=== PATIENT | male | born 1945 | race Caucasian/White ===

== ENCOUNTER 2017-01-20 13:12 | Inpatient (IN) | payer MEDICARE, BC ==
[~2017-01-20] VITALS: Ht 208.3 cm; Wt 96.7 kg
[~2017-01-20 13:12] MED LIST: ASPIRIN81 M1 PO; NORCO 5-325 TA1 EACH PO; SYNTHROID150 MC1 PO; VITAMIN D1000 UNI3 PO
[2017-01-20 13:53] LABS: BASO % 0.5 % (0-2); BASO ABSOLUTE COUNT 0.1 tho/cmm (0.0-0.2); EOS % 1.4 % (0-7); EOSINOPHIL ABSOLUTE COUNT 0.2 tho/cmm (0.0-0.7); HCT-HEMATOCRIT 45.3 % (36.0-53.5); HGB-HEMOGLOBIN 15.9 gm/dl (13.5-17.0); IMMATURE GRANULOCYTES ABSOLUTE 0.04 tho/cmm (0-0.03); IMMATURE GRANULOCYTES PERCENT 0.3 % (0-0.3); LYMPH % 17.3 % (20-45); LYMPH ABSOLUTE COUNT 2.3 tho/cmm (0.8-4.5); MCHC MEAN CORPUSCULAR HGB CONC 35.1 % (32.0-36.0); MCV (MEAN CELL VOLUME) 88.3 fl (82.0-96.0); MEAN PLATELET VOLUME 8.8 cmc (9.4-12.4); MONO % 5.7 % (0-12); MONOCYTE ABSOLUTE COUNT 0.7 tho/cmm (0.0-1.2); NEUTROPHIL ABSOLUTE COUNT 9.8 tho/cmm (1.6-8.0); NEUTROPHIL-AUTOMATED 9.8 tho/cmm (1.6-8.0); NEUTROPHILS % 74.8 % (40-80); PLATELET COUNT 277 tho/cmm (150-450); RED BLOOD COUNT 5.13 mil/cmm (4.40-5.70); RED CELL DISTRIBUTION WIDTH 12.6 % (12.4-16.4)
[2017-01-20 14:12] LABS: ALBUMIN 3.8 g/dl (3.5-5.0); ALKALINE PHOSPHATASE 84 U/L (33-138); ALT/SGPT 35 U/L (12-78); ANION GAP 12 mmol/L (0-20); AST/SGOT 26 U/L (10-40); BILIRUBIN,DIRECT 0.1 mg/dl (0.0-0.3); BILIRUBIN,INDIRECT 0.5 mg/dL (0.0-1.0); BILIRUBIN,TOTAL 0.6 mg/dl (0.0-1.5); BLOOD UREA NITROGEN 16 mg/dl (6-24); CALCIUM 9.1 mg/dl (8.5-10.5); CARBON DIOXIDE-VENOUS 24 mmol/L (22-32); CHLORIDE 106 mmol/l (96-110); CREATININE 0.87 mg/dl (0.60-1.30); GLUCOSE 172 mg/dL (70-110); POTASSIUM 3.6 mmol/L (3.7-5.1); SODIUM 138 mmol/L (135-145); eGFR VALUE FOR BLACK >90 mL/Min
[2017-01-20 14:25] LABS: LIPASE >30000 U/L (73-393)
[2017-01-20 17:22] LABS: URINE APPEARANCE CLEAR; URINE BILIRUBIN NEGATIVE (NEG); URINE BLOOD NEGATIVE (NEG); URINE COLOR YELLOW; URINE GLUCOSE (UA) NEGATIVE (NEG); URINE KETONE NEGATIVE (NEG); URINE LEUKOCYTE ESTERASE NEGATIVE (NEG); URINE NITRITE NEGATIVE (NEG); URINE PROTEIN SMALL (NEG)
[2017-01-20 17:27] LABS: URINE EPITHELIAL CELLS 0 /[HPF] (0-10); URINE RBC 0 /[HPF] (0-5); URINE WBC 0 /[HPF] (0-5)
[2017-01-20 17:57] LABS: MAGNESIUM 2.1 mg/dl (1.8-2.6); PHOSPHOROUS 2.5 mg/dl (2.5-4.9)
[2017-01-20 18:00] LABS: TSH-THYROID STIMULATING HORM. 1.16 uIU/ml (0.40-3.80)
[2017-01-20] MEDS ORDERED: VITAMIN D PO (21:14)
[2017-01-21] MEDS ORDERED: PRILOSEC PO (00:33)
[2017-01-21 06:05] LABS: BASO % 0.1 % (0-2); HCT-HEMATOCRIT 41.7 % (36.0-53.5); HGB-HEMOGLOBIN 14.1 gm/dl (13.5-17.0); IMMATURE GRANULOCYTES ABSOLUTE 0.02 tho/cmm (0-0.03); IMMATURE GRANULOCYTES PERCENT 0.2 % (0-0.3); LYMPH % 4.6 % (20-45); LYMPH ABSOLUTE COUNT 0.5 tho/cmm (0.8-4.5); MCH (MEAN CORPUSCULAR HGB) 30.7 pg (28.0-32.0); MCHC MEAN CORPUSCULAR HGB CONC 33.8 % (32.0-36.0); MCV (MEAN CELL VOLUME) 90.7 fl (82.0-96.0); MEAN PLATELET VOLUME 8.8 cmc (9.4-12.4); MONO % 4.4 % (0-12); MONOCYTE ABSOLUTE COUNT 0.5 tho/cmm (0.0-1.2); NEUTROPHIL ABSOLUTE COUNT 10.6 tho/cmm (1.6-8.0); NEUTROPHIL-AUTOMATED 10.6 tho/cmm (1.6-8.0); NEUTROPHILS % 90.7 % (40-80); PLATELET COUNT 205 tho/cmm (150-450); RED CELL DISTRIBUTION WIDTH 13.1 % (12.4-16.4); WHITE BLOOD COUNT 11.6 tho/cmm (4.0-10.0)
[2017-01-21 06:19] LABS: INR 1.2 INR (0.9-1.1); PROTHROMBIN TIME 13.8 SECONDS (9.0-13.6)
[2017-01-21 06:21] LABS: ANION GAP 6 mmol/L (0-20); BLOOD UREA NITROGEN 19 mg/dl (6-24); C-REACTIVE PROTEIN 1.6 mg/dl (0-0.9); CALCIUM 8.2 mg/dl (8.5-10.5); CARBON DIOXIDE-VENOUS 29 mmol/L (22-32); CHLORIDE 110 mmol/l (96-110); CREATININE 0.79 mg/dl (0.60-1.30); GLUCOSE 156 mg/dL (70-110); POTASSIUM 4.4 mmol/L (3.7-5.1); SODIUM 141 mmol/L (135-145); eGFR VALUE FOR BLACK >90 mL/Min
[2017-01-21 06:28] LABS: LIPASE 3998 U/L (73-393)
[2017-01-21 06:30] LABS: AMYLASE 411 U/L (20-90)
--- NOTE | 2017-01-21 16:15 | NUR ---
VN NOTE-CALLED DR CHANDRA SCMIDTS OFFICE AND GOT VACCINE INFORMATION
--- NOTE | 2017-01-21 17:39 | NUR ---
VN ROUNDING-PATIENT LAYING IN BED SAYING HE HAS FREQUENT PAIN-ENC HIM TO USE THE CONCRETE MASON NEEDED. I ASKED HOW HE WAS DOING AMBULATING IN THE HALLS AND HE SAID THEY WILL TRY TO DO THAT TOMORROW-SO I ASKED WHAT WAS THE REASON FOR NOT WALKING IN THE HALLS TODAY AND HE SAID DUE TO HIS PROCEDURE AND NOT FEELING LIKE IT. EDUCATED HIM ON THE IMPORTANCE OF WALKING-HE AGREED AND VERBALIZED UNDERSTANDING. HE KNOWS THAT HE MAY HAVE TO HAVE A LAP APRIL AND HE MENTIONED THE DOCS HAD SAID MAYBE SATURDAY. NO FURTHER QUESTIONS OR CONCERNS AT THIS TIME
[2017-01-22 05:07] LABS: BASO % 0.1 % (0-2); HCT-HEMATOCRIT 38.5 % (36.0-53.5); HGB-HEMOGLOBIN 13.1 gm/dl (13.5-17.0); IMMATURE GRANULOCYTES ABSOLUTE 0.06 tho/cmm (0-0.03); IMMATURE GRANULOCYTES PERCENT 0.4 % (0-0.3); LYMPH % 4.3 % (20-45); LYMPH ABSOLUTE COUNT 0.7 tho/cmm (0.8-4.5); MCV (MEAN CELL VOLUME) 91.2 fl (82.0-96.0); MEAN PLATELET VOLUME 8.9 cmc (9.4-12.4); MONO % 6.4 % (0-12); NEUTROPHIL ABSOLUTE COUNT 14.4 tho/cmm (1.6-8.0); NEUTROPHIL-AUTOMATED 14.4 tho/cmm (1.6-8.0); NEUTROPHILS % 88.8 % (40-80); PLATELET COUNT 166 tho/cmm (150-450); RED BLOOD COUNT 4.22 mil/cmm (4.40-5.70); RED CELL DISTRIBUTION WIDTH 13.2 % (12.4-16.4); WHITE BLOOD COUNT 16.2 tho/cmm (4.0-10.0)
[2017-01-22 05:20] LABS: ALB/GLOB RATIO 0.9 (0.8-2.0); ALBUMIN 2.8 g/dl (3.5-5.0); ALKALINE PHOSPHATASE 55 U/L (33-138); ALT/SGPT 23 U/L (12-78); ANION GAP 9 mmol/L (0-20); AST/SGOT 22 U/L (10-40); BLOOD UREA NITROGEN 17 mg/dl (6-24); CALCIUM 7.8 mg/dl (8.5-10.5); CARBON DIOXIDE-VENOUS 28 mmol/L (22-32); CHLORIDE 105 mmol/l (96-110); GLUCOSE 99 mg/dL (70-110); POTASSIUM 3.7 mmol/L (3.7-5.1); SODIUM 138 mmol/L (135-145); eGFR VALUE FOR BLACK >90 mL/Min
--- NOTE | 2017-01-22 21:02 | NUR ---
LAVON BOWMAN-SPOKE WITH PATIENT HE LAY IN BED-PAIN IS STAYING CONTROLLED WITH THE JAVASCRIPT SOFTWARE ENGINEER AND IS ON OXYGEN. HE IS PLANNED FOR A LAP APRIL IN THE MORNING AND HAS NO QUESTIONS REGARDING THE SURGERY THE DOCTOR EXPLAINED IT WELL FOR HIM. I DID ENC HIM TO TAKE DEEP BREATHS AND COUGH AND I AM ASKING THE NURSE TO TAKE IN AN INCENTIVE SPIROMETER FOR HIM TO START USING 10X/HOUR WHEN AWAKE HE HAS SOME ATELECTASIS. PATIENT HAD NO FURTHER QUESTIONS OR CONCERNS.
[2017-01-23 06:27] LABS: BASO % 0.1 % (0-2); HCT-HEMATOCRIT 39.5 % (36.0-53.5); HGB-HEMOGLOBIN 13.3 gm/dl (13.5-17.0); IMMATURE GRANULOCYTES ABSOLUTE 0.06 tho/cmm (0-0.03); IMMATURE GRANULOCYTES PERCENT 0.4 % (0-0.3); LYMPH % 5.8 % (20-45); LYMPH ABSOLUTE COUNT 0.8 tho/cmm (0.8-4.5); MCH (MEAN CORPUSCULAR HGB) 30.5 pg (28.0-32.0); MCHC MEAN CORPUSCULAR HGB CONC 33.7 % (32.0-36.0); MCV (MEAN CELL VOLUME) 90.6 fl (82.0-96.0); MEAN PLATELET VOLUME 8.7 cmc (9.4-12.4); MONO % 5.5 % (0-12); MONOCYTE ABSOLUTE COUNT 0.8 tho/cmm (0.0-1.2); NEUTROPHIL ABSOLUTE COUNT 12.3 tho/cmm (1.6-8.0); NEUTROPHIL-AUTOMATED 12.3 tho/cmm (1.6-8.0); NEUTROPHILS % 88.2 % (40-80); PLATELET COUNT 175 tho/cmm (150-450); RED BLOOD COUNT 4.36 mil/cmm (4.40-5.70); RED CELL DISTRIBUTION WIDTH 12.8 % (12.4-16.4)
[2017-01-23 06:47] LABS: ALB/GLOB RATIO 0.7 (0.8-2.0); ALBUMIN 2.8 g/dl (3.5-5.0); ALKALINE PHOSPHATASE 59 U/L (33-138); ALT/SGPT 22 U/L (12-78); AMYLASE 55 U/L (20-90); ANION GAP 10 mmol/L (0-20); AST/SGOT 25 U/L (10-40); BILIRUBIN,TOTAL 1.2 mg/dl (0.0-1.5); BLOOD UREA NITROGEN 21 mg/dl (6-24); CALCIUM 7.7 mg/dl (8.5-10.5); CARBON DIOXIDE-VENOUS 28 mmol/L (22-32); CHLORIDE 102 mmol/l (96-110); CREATININE 0.68 mg/dl (0.60-1.30); GLUCOSE 109 mg/dL (70-110); LIPASE 134 U/L (73-393); POTASSIUM 3.3 mmol/L (3.7-5.1); SODIUM 137 mmol/L (135-145); eGFR VALUE FOR BLACK >90 mL/Min
--- NOTE | 2017-01-23 19:26 | NUR ---
PT COMBATIVE AND CONFUSED ON ARRIVAL TO FLOOR FROM PACU AFTER LAP APRIL. REFUSES TO ALLOW STAFF TO ASSESS AND TAKE BP, NO POSTOP BPs OBTAINED. HALDOL GIVEN IN PACU. SECURITY IN ROOM.
--- NOTE | 2017-01-24 17:18 | NUR ---
VIRTUAL CARE NOTE: RN CALLS VN FROM PT'S ROOM DISCUSSED ABOUT DC PLAN, PT SAID HE WANTS TO GO HOME, OXY WEAN OFF ON RA 91-93% PER LUCY RN. VN PAGED IMS FOR DISCHARGE ORDER. WILL UPDATE PT WITH DISCHARGE PLAN.
[2017-01-24 20:16] LABS: BASO % 0.1 % (0-2); EOS % 0.5 % (0-7); EOSINOPHIL ABSOLUTE COUNT 0.1 tho/cmm (0.0-0.7); HCT-HEMATOCRIT 37.9 % (36.0-53.5); HGB-HEMOGLOBIN 13.1 gm/dl (13.5-17.0); IMMATURE GRANULOCYTES ABSOLUTE 0.06 tho/cmm (0-0.03); IMMATURE GRANULOCYTES PERCENT 0.5 % (0-0.3); LYMPH % 7.4 % (20-45); LYMPH ABSOLUTE COUNT 0.9 tho/cmm (0.8-4.5); MCH (MEAN CORPUSCULAR HGB) 31.1 pg (28.0-32.0); MCHC MEAN CORPUSCULAR HGB CONC 34.6 % (32.0-36.0); MEAN PLATELET VOLUME 8.5 cmc (9.4-12.4); MONO % 7.2 % (0-12); MONOCYTE ABSOLUTE COUNT 0.9 tho/cmm (0.0-1.2); NEUTROPHIL ABSOLUTE COUNT 10.7 tho/cmm (1.6-8.0); NEUTROPHIL-AUTOMATED 10.7 tho/cmm (1.6-8.0); NEUTROPHILS % 84.3 % (40-80); PLATELET COUNT 230 tho/cmm (150-450); RED BLOOD COUNT 4.21 mil/cmm (4.40-5.70); RED CELL DISTRIBUTION WIDTH 12.6 % (12.4-16.4); WHITE BLOOD COUNT 12.7 tho/cmm (4.0-10.0)
[2017-01-24 20:32] LABS: ALB/GLOB RATIO 0.7 (0.8-2.0); ALBUMIN 2.7 g/dl (3.5-5.0); ALKALINE PHOSPHATASE 59 U/L (33-138); ANION GAP 12 mmol/L (0-20); BILIRUBIN,TOTAL 0.8 mg/dl (0.0-1.5); BLOOD UREA NITROGEN 21 mg/dl (6-24); CALCIUM 7.7 mg/dl (8.5-10.5); CARBON DIOXIDE-VENOUS 28 mmol/L (22-32); CHLORIDE 101 mmol/l (96-110); CREATININE 0.75 mg/dl (0.60-1.30); GLUCOSE 109 mg/dL (70-110); POTASSIUM 3.3 mmol/L (3.7-5.1); SODIUM 138 mmol/L (135-145); eGFR VALUE FOR BLACK >90 mL/Min
[2017-01-24 20:35] LABS: ALT/SGPT 50 U/L (12-78); AST/SGOT 43 U/L (10-40)
--- NOTE | 2017-01-24 20:49 | NUR ---
VIRTUAL CARE NOTE: PT UP IN THE CHAIR, AND STATES HE IS DOING PRETTY GOOD. HIS NOSE IS DRY. THIS NURSE WILL PAGE OUT TO STAFF IF THEY NEED TO CALL THE ON-CALL PROVIDER CIARAN THEN I WILL TRY TO GET HIM SOMETHING FOR THE DRY NARES. EDUCATION PROVIDED ON PERCOCET PAIN MEDICATIONS. SIDE EFFECTS REVIEWED. HAND OUT WILL BE PRINTED ALSO AND THIS NURSE WILL HAVE UNIT STAFF GIVE THE PT. THE INFORMATION. EDUCATION ALSO REVIEWED OF REASONINGS THE [facility] DOCTORS WOULD LIKE THE PT. TO REMAIN OVERNIGHT TO IMPROVE HIS LUNG STATUS AND TO REALLY WORK DILIGANTLY ON USING I.S. AND TO COUGH AND DEEP BREATH WHEN AWAKE TO O2 SATURATION AMOUNTS CAN IMPROVE AND ALSO THE DOCTOR WAS UPDATED WITH CXR RESULTS. DENIES FURTHER NEEDS AT THIS TIME. INSTRUCTED TO CALL FOR FUTURE NEEDS. STATES VERBAL UNDERSTANDING TO ALL EDUCATION PROVIDED.
[2017-01-25] MEDS ORDERED: PERCOCET 5-3251 EACH PO (09:53)
--- NOTE | 2017-01-25 12:10 | NUR ---
VIRTUAL CARE NOTE: PT DRESSED READY FOR DISCHARGE INSTRUCTIONS. INFORMATION GIVEN TO PT, PT DENIES QUESIONS OR CONCERNS. INFORMED FLOOR NURSE DISCHARGE TEACHING DONE.
== END 2017-01-25 12:37 | DRG 417 ==
LOC: EDMED 13:12 → EMR2 17:09 → 5WD 17:09 → ORW 01-23 11:25 → PACU 01-23 12:12 → 5WD 01-23 15:20
PROVIDERS: Emergency Medicine; Family Medicine; Specialist; ADMIT Family Medicine
PROC: 0FT44ZZ Resection of Gallbladder, Percutaneous Endoscopic Approach (ICD-10-PCS; principal; 2017-01-23)
PROC: 02HV33Z Insertion of Infusion Device into Superior Vena Cava, Percutaneous Approach (ICD-10-PCS; 2017-01-23)
DX: K80.00 Calculus of gallbladder with acute cholecystitis without obstruction (principal); K85.90 Acute pancreatitis without necrosis or infection, unspecified; E03.9 Hypothyroidism, unspecified
CPT/HCPCS: C1751; J1170; J1630; J1650; J1940; J2250; J2270; J2405; J3480; J7030; Q9967